=== PATIENT | female | born 1990 | race Hispanic/Latino ===

== ENCOUNTER → 2016-05-24 | Outpatient (CLI) | payer OTHER ==
--- NOTE | 2016-05-24 13:15 | Diagnostic Imaging Report ---
OB ultrasound. INDICATION: Uncertain dates. FINDINGS: There are no prior studies available for comparison. There is a single live fetus in variable presentation. heart motion is noted and a rate of 158 bpm is recorded. The growth parameters suggest the estimated gestational age as 16 weeks 4 days +/- 1 week. The growth parameters are as follows: BPD: 3.55, 17 weeks. Head circumference: 12.49, 16 weeks 3 days. Abdominal circumference: 10.71, 16 weeks 5 days. Femur length: 2.05, 16 weeks 1 day. There are no obvious abnormalities identified; however, a short-term (4-6 weeks) follow-up exam will be recommended for more sensitive evaluation of the anatomy. The amniotic fluid volume is within normal limits. The placenta is anterior and there is no previa. The cervix is identified and measures 5.1 cm in length (normal 3 cm or greater). IMPRESSION: 1. There is single live intrauterine of approximately 16 weeks 4 days gestation +/- 1 week. The EDC is November 04, 2016. 2. There are no obvious abnormalities identified. Recommendations as above. 3. The growth parameters are fairly uniform. Dictated by: Dictated on workstation # [id number]
== END ==
LOC: RAD 11:21
PROVIDERS: ATTEND Family Medicine
DX: Z34.82 Encounter for supervision of other normal pregnancy, second trimester (principal)
CPT/HCPCS: 76805

== ENCOUNTER → 2016-06-14 | Outpatient (CLI) | payer OTHER ==
--- NOTE | 2016-06-14 16:34 | Diagnostic Imaging Report ---
OB ultrasound. INDICATION: survey. FINDINGS: The heart rate is 153 beats per minute. The placenta is anterior. There is no placenta previa. The cervix is long and closed. The posterior fossa, the lateral ventricles, the stomach, bladder and the cord insertion appear unremarkable. The spine, four-chamber view and three-vessel cord are not well seen due to position. The growth parameters are all around 19 weeks and 4 days, normal interval growth from the prior exam. IMPRESSION: Appropriate interval growth. Short-term followup within two weeks is recommended to reevaluate the four-chamber view, the spine and three-vessel cord. Dictated by: Dictated on workstation # [id number]
== END ==
LOC: RAD 13:26
PROVIDERS: ATTEND Family Medicine
DX: Z34.82 Encounter for supervision of other normal pregnancy, second trimester (principal)
CPT/HCPCS: 76805

== ENCOUNTER → 2016-07-25 | Outpatient (CLI) | payer OTHER ==
--- NOTE | 2016-07-25 19:18 | Diagnostic Imaging Report ---
OB ultrasound. INDICATION: Four-chamber view, spine and three-vessel cord. COMPARISON: 06/14/2016. FINDINGS: heart rate is 149 beats per minute. The four-chamber view appears unremarkable. Three-vessel cord is demonstrated. The cord insertion appears normal. The upper aspect of the spine is seen without significant abnormality. The mid and lower spine is not well seen. IMPRESSION: The mid and lower spine segments are still not well seen. Short-term followup is recommended. Dictated by: Dictated on workstation # [id number]
== END ==
LOC: RAD 11:30
PROVIDERS: ATTEND Family Medicine
DX: Z34.82 Encounter for supervision of other normal pregnancy, second trimester (principal)
CPT/HCPCS: 76816

== ENCOUNTER 2016-10-05 16:10 | Inpatient (IN) | payer OTHER ==
[~2016-10-05] VITALS: Ht 170.2 cm; Wt 93.4 kg
[2016-10-05] VITALS (25 sets, daily range): BP systolic 112–132; BP diastolic 58–84
[2016-10-05] MEDS ORDERED: MINERAL OIL CONCENTRATE 99.9% 15 ML UDC TOP PRN (16:45)
[2016-10-05] MEDS ORDERED: AMPICILLIN INJECTION 2,000 MG in NS (IVPB) 50 ML IV ONE (16:45)
[2016-10-05] MEDS ORDERED: NS (IVPB) 50 ML ONE (16:48)
[2016-10-05] MEDS ORDERED: AMPICILLIN 2000 MG INJECTION (IM/IV) ONE (16:48)
[2016-10-05] MEDS: D5 LR IV SOLUTION 1,000 ML IV SCH (17:00)
[2016-10-05 17:24] LABS: BASOPHILS % (AUTO) 0 % (0-10); EOSINOPHILS % (AUTO) 1 % (0-10); LYMPHOCYTES # (AUTO) 1.1 X 10^3 (1.0-4.0); LYMPHOCYTES % (AUTO) 18 % (12-44); MEAN CORPUSCULAR HEMOGLOBIN 33 PG (25-34); MEAN CORPUSCULAR HGB CONC 34 G/DL (32-36); MEAN CORPUSCULAR VOLUME 97 FL (80-99); MEAN PLATELET VOLUME 12.5 FL (7.4-10.4); MONOCYTES # (AUTO) 0.7 X 10^3 (0.0-1.0); MONOCYTES % (AUTO) 12 % (0-12); NEUTROPHILS # (AUTO) 4.5 X 10^3 (1.8-7.8); NEUTROPHILS % (AUTO) 70 % (42-75); PLATELET COUNT 169 10^3/uL (130-400); RED BLOOD COUNT 3.64 10^6/uL (4.35-5.85); WHITE BLOOD COUNT 6.3 10^3/uL (4.3-11.0)
[2016-10-05 17:48] LABS: BILIRUBIN,URINE NEGATIVE (NEGATIVE); KETONES,URINE NEGATIVE (NEGATIVE); LEUKOCYTE ESTERASE ,URINE 1+ (NEGATIVE); NITRITE,URINE NEGATIVE (NEGATIVE); PH,URINE 7 (5-9); PROTEIN,URINE 2+ (NEGATIVE); UROBILINOGEN,URINE NORMAL (NORMAL)
[2016-10-05 17:56] LABS: WBC,URINE 0-2 /HPF
[2016-10-05] MEDS: AMPICILLIN INJECTION 1,000 MG in NS (IVPB) 50 ML IV SCH (20:49)
[2016-10-05] MEDS ORDERED: OXYTOCIN/NORMAL SALINE 500 ML IV ONE (21:18)
[2016-10-05] MEDS ORDERED: OXYTOCIN/NORMAL SALINE 500 ML IV SCH (21:36)
[2016-10-05] MEDS ORDERED: CATHETER FLUSH 10 ML SYR IV SCH (22:00)
[2016-10-06] VITALS (23 sets, daily range): BP systolic 107–138; BP diastolic 62–98
[2016-10-06] MEDS: AMPICILLIN INJECTION 1,000 MG in NS (IVPB) 50 ML IV SCH (00:58)
[2016-10-06] MEDS ORDERED: BUTORPHANOL INJ 2 MG/ML (STADOL) VIAL IV ONE (01:15)
--- NOTE | 2016-10-06 01:59 | History & Physical-OB ---
OB - Chief Complaint & HPI Date/Time Date of Admission: Date of Admission: Oct 05, 2016 at 16:11 Time Seen by Provider: 01:54 Chief Complaint/History OB-Reason for Admission/Chief: Rupture of Membranes ( Premature) Hx : 3 Hx Para: 2 Expected Date of Delivery: Nov 04, 2016 Gestational Age in Weeks: 35 Gestational Age in Days: 6 Other reason for admission: PPROM @ 1130 at home, presented to OB floor at 1615. Having contractions but not really feeling them Allergies and Home Medications Allergies Coded Allergies: No Known Drug Allergies (Verified Allergy, Unknown, 05/09/07) OB - History Hx of Present Care: Yes (Established with Dr Ayala at 16 wga) Ultrasounds: Normal mid trimester US Obstetrical Complications: None Medical Complications: None Information Induced Hypertension: No Maternal Gestational Diabetes: No Hemorrhage: No Obstetrical History Hx : 3 Hx Para: 2 Hx # Term Pregnancies: 2 Hx # Pregnancies: 0 Patient Past Medical History None Social History/Family History HIV/AIDS: No Recent Infectious Disease Expo: No Alcohol Use: Denies Use Recreational Drug Use: No Immunizations Hepatitis A: No Hepatitis B: No Tetanus Booster (TDap): Less than 5yrs Rubella: immune RPR/VDRL: Negative GBS Status: Unknown HBsAG: Negative OB - Admission Exam Physical Exam Time Seen by Provider: 02:02 Vitals: Vital Signs 10/06/16 01:00 Temp 98.5 Pulse 80 Resp 18 B/P (MAP) 132/80 HEENT: NCAT Heart: Rhythm Normal Lungs: Clear Abdomen: Soft Extremities: Normal Reflexes: Normal Cervical Dilatation: 6cm Amniotic Fluid: Clear Labs Laboratory Tests Test 10/05/16 17:00 Range/Units White Blood Count 6.3 4.3-11.0 10^3/uL Red Blood Count 3.64 L 4.35-5.85 10^6/uL Hemoglobin 12.1 11.5-16.0 G/DL Hematocrit 35 35-52 % Mean Corpuscular Volume 97 80-99 FL Mean Corpuscular Hemoglobin 33 25-34 PG Mean Corpuscular Hemoglobin Concent 34 32-36 G/DL Red Cell Distribution Width 13.0 10.0-14.5 % Platelet Count 169 130-400 10^3/uL Mean Platelet Volume 12.5 H 7.4-10.4 FL Neutrophils (%) (Auto) 70 42-75 % Lymphocytes (%) (Auto) 18 12-44 % Monocytes (%) (Auto) 12 0-12 % Eosinophils (%) (Auto) 1 0-10 % Basophils (%) (Auto) 0 0-10 % Neutrophils # (Auto) 4.5 1.8-7.8 X 10^3 Lymphocytes # (Auto) 1.1 1.0-4.0 X 10^3 Monocytes # (Auto) 0.7 0.0-1.0 X 10^3 Eosinophils # (Auto) 0.0 0.0-0.3 10^3/uL Basophils # (Auto) 0.0 0.0-0.1 10^3/uL Urine Color YELLOW Urine Clarity CLEAR Urine pH 7 5-9 Urine Specific [place] 1.015 L 1.016-1.022 Urine Protein 2+ H NEGATIVE Urine Glucose (UA) NEGATIVE NEGATIVE Urine Ketones NEGATIVE NEGATIVE Urine Nitrite NEGATIVE NEGATIVE Urine Bilirubin NEGATIVE NEGATIVE Urine Urobilinogen NORMAL NORMAL MG/DL Urine Leukocyte Esterase 1+ H NEGATIVE Urine RBC (Auto) 1+ H NEGATIVE Urine RBC 0-2 /HPF Urine WBC 0-2 /HPF Urine Squamous Epithelial Cells 5-10 /HPF Urine Crystals NONE /LPF Urine Bacteria TRACE /HPF Urine Casts NONE /LPF Urine Mucus SMALL H /LPF Urine Culture Indicated NO OB - Assessment/Plan/Diagnosis Assessment Assessment: rupture of membranes Plan Plan: Expectant Management (with pitocin augmentation) Copy Copies To 1: VESNA AYALA MD, HOLLY R MD Oct 06, 2016 01:59
[2016-10-06] MEDS: D5 LR IV SOLUTION 1,000 ML IV SCH (02:26)
--- NOTE | 2016-10-06 02:52 | OB Labor & Delivery Record ---
L&D History Date of Service Date of Service: Oct 06, 2016 History Expected Date of Delivery: Nov 04, 2016 Gestational Age in Weeks: 35 Hx : 3 Hx Para: 2 Complications Events: Prematre Rupture Membrane, Routine care Operative Indications (Cesarea: N/A-Vaginal Delivery Intrapartal Events: None L&D Stage1 Stage One Onset of Labor - Date: Oct 05, 2016 Onset of Labor - Time: 11:30 Monitors and Tracing Monitor Mode: Internal Heart Rate: 145 Station: -2 Vital Signs VS - Last 72 Hours, by Label 10/05/16 10/05/16 10/05/16 10/05/16 16:25 17:00 17:30 18:00 Temp 98.6 98.3 Pulse 96 83 Resp 18 18 B/P (MAP) 130/83 112/69 122/67 10/05/16 10/05/16 10/05/16 10/05/16 18:30 18:40 18:52 19:07 Temp 98.1 Pulse 86 80 83 83 Resp 18 18 18 18 B/P (MAP) 113/58 120/69 130/74 121/76 10/05/16 10/05/16 10/05/16 10/05/16 19:24 19:34 19:39 19:52 Temp 98.1 Pulse 76 74 82 Resp 18 18 18 B/P (MAP) 124/73 119/76 123/83 10/05/16 10/05/16 10/05/16 10/05/16 20:07 20:21 20:38 20:52 Temp 98.4 Pulse 87 88 83 77 Resp 18 18 18 18 B/P (MAP) 119/76 121/77 129/78 132/69 10/05/16 10/05/16 10/05/16 10/05/16 21:07 21:23 21:39 21:45 Temp 98.1 Pulse 82 78 83 Resp 18 18 18 B/P (MAP) 129/68 123/73 122/71 10/05/16 10/05/16 10/05/16 10/05/16 21:52 22:15 22:30 22:45 Pulse 88 90 82 81 Resp 18 18 18 18 B/P (MAP) 125/72 132/76 124/80 124/77 6/810/05/16 10/05/16 10/05/16 23:00 23:15 23:30 23:45 Temp 97.9 Pulse 77 81 78 78 Resp 18 18 18 18 B/P (MAP) 126/84 129/74 124/73 128/74 10/06/16 10/06/16 10/06/16 10/06/16 00:00 00:15 00:30 00:45 Temp 98.6 Pulse 85 78 77 78 Resp 18 18 18 18 B/P (MAP) 132/81 132/78 135/98 128/81 10/06/16 10/06/16 01:00 01:15 Temp 98.5 Pulse 80 81 Resp 18 18 B/P (MAP) 132/80 130/77 Rupture of Membranes Spontaneous Ruture of Membrane: Yes Amniotic Membrane Rupture Time: 1130 Amniotic Fluid Membrane Tests: Nitrazine Positive L&D Stage2 Stage Two Stage II Date: Oct 06, 2016 Monitors and Tracing Monitor Mode: Internal Heart Rate: 145 Position: Left Occiput Anterior Presentation: Vertex Signs of Distress by FHT Signs of Distress Early and Variable Decelerations Cord Descript/Complications Cord Vessel Description: 3 Vessels Delivery Type Infant Delivery Method: Spontaneous Vaginal Anterior Shoulder: Right Episiotomy/Perineal Laceration Episiotomy Description: Periurethral Extnsion/lac (No repair needed) Condition of Delivery Delivery Date & Time: 10/06/2016 0230 1 minute Comment: 8 5 minute Comment: 8 Notes 10 min: 9 Condition of Condition of Infant: Living Dr Castro Attended Delivery for care Resuscitation Resuscitation: Oxygen [place] (30%) L&D Stage3 Stage Three Stage III Date: Oct 06, 2016 Stage III Time: 02:33 Pictocin Pitocin Administration mu/min: 8 Pitocin ml/hr: 8 Pitocin Administration Comment: [id number] PITOCIN INCREASED. Placenta Delivery Placenta Delivery: Spontaneous Delivery Summary Summary Vaginal blood loss >500ml: No 125 Attending at delivery: Dr Curry Rag Boiler Donna Waddell, 3rd Year Medical student Condition of Delivery Examined: Cervix Examined Post Hemorrhage: No Condition of Mother Stable in delivery room Condition of (s) Stable in Delivery room with mother MAME CURRY MD Oct 06, 2016 02:52
[2016-10-06] MEDS ORDERED: OXYTOCIN/NORMAL SALINE 500 ML IV SCH (02:54)
[2016-10-06] MEDS ORDERED: BENZOCAINE/MENTHOL (DERMOPLAST) 56 ML CAN TP PRN (03:00)
[2016-10-06] MEDS ORDERED: WITCH HAZEL(TUCKS) 40 EA JAR TOP PRN (03:00)
[2016-10-06] MEDS: IBUPROFEN 600 MG (MOTRIN) TAB PO SCH ×4 (04:26→22:06)
[2016-10-06] MEDS ORDERED: CATHETER FLUSH 10 ML SYR IV SCH (06:00)
[2016-10-06] MEDS: PRENATAL VITAMIN 1 EA TAB PO SCH (09:41)
[2016-10-07] VITALS: BP 118/64
[2016-10-07 02:15] VITALS: BP 118/64
[2016-10-07] MEDS: IBUPROFEN 600 MG (MOTRIN) TAB PO SCH ×3 (03:59→16:24)
[2016-10-07 04:00] VITALS: BP 106/69
[2016-10-07 07:03] LABS: BASOPHILS % (AUTO) 0 % (0-10); EOSINOPHILS # (AUTO) 0.1 10^3/uL (0.0-0.3); EOSINOPHILS % (AUTO) 1 % (0-10); LYMPHOCYTES # (AUTO) 2.1 X 10^3 (1.0-4.0); LYMPHOCYTES % (AUTO) 33 % (12-44); MEAN CORPUSCULAR HEMOGLOBIN 33 PG (25-34); MEAN CORPUSCULAR HGB CONC 33 G/DL (32-36); MEAN CORPUSCULAR VOLUME 99 FL (80-99); MEAN PLATELET VOLUME 12.3 FL (7.4-10.4); MONOCYTES # (AUTO) 0.6 X 10^3 (0.0-1.0); MONOCYTES % (AUTO) 10 % (0-12); NEUTROPHILS # (AUTO) 3.5 X 10^3 (1.8-7.8); NEUTROPHILS % (AUTO) 56 % (42-75); PLATELET COUNT 137 10^3/uL (130-400); RED BLOOD COUNT 3.35 10^6/uL (4.35-5.85); RED CELL DISTRIBUTION WIDTH 13.3 % (10.0-14.5); WHITE BLOOD COUNT 6.3 10^3/uL (4.3-11.0)
[2016-10-07 07:45] VITALS: BP 119/78
[2016-10-07] MEDS: PRENATAL VITAMIN 1 EA TAB PO SCH (08:35)
--- NOTE | 2016-10-07 11:29 | Progress Note (SOAP) ---
Subjective Subjective/Events-last exam No concerns today. Bleeding less then period. Pain well controlled on PO meds. Tolerating ambulation and PO diet Review of Systems Time Seen by Provider: 10:20 Objective Exam Last Set of Vital Signs Vital Signs Date Time Temp Pulse Resp B/P (MAP) Pulse Ox O2 Delivery O2 Flow Rate FiO2 10/07/16 07:45 97.4 73 16 119/78 98 Room Air Capillary Refill : I&O Intake and Output 10/07/16 00:00 Intake Total 1700 ml Output Total 950 ml Balance 750 ml Intake Oral 650 ml IV Total 1050 ml Output Urine Total 950 ml General: Alert, Oriented X3, No Acute Distress Lungs: Clear to Auscultation, Normal Air Movement Heart: Regular Rate, No Murmurs Abdomen: Soft, No Tenderness, Other Extremities: No Edema, No Tenderness/Swelling Results/Procedures Lab Laboratory Tests 10/07/16 06:38: White Blood Count 6.3, Red Blood Count 3.35L, Hemoglobin 11.1L, Hematocrit 33L, Mean Corpuscular Volume 99, Mean Corpuscular Hemoglobin 33, Mean Corpuscular Hemoglobin Concent 33, Red Cell Distribution Width 13.3, Platelet Count 137, Mean Platelet Volume 12.3H, Neutrophils (%) (Auto) 56, Lymphocytes (%) (Auto) 33 , Monocytes (%) (Auto) 10, Eosinophils (%) (Auto) 1, Basophils (%) (Auto) 0, Neutrophils # (Auto) 3.5, Lymphocytes # (Auto) 2.1, Monocytes # (Auto) 0.6, Eosinophils # (Auto) 0.1, Basophils # (Auto) 0.0 Assessment/Plan Assessment/Plan Plan 26 yo G3 now P3 del female infant @ 35.6 wga via , PPD #1 Plan - Hgb stable, 12.1->11.1, continue PNV - Pain well controlled on PO medication - Encourage ambulation - Plan to d/c home with infant tomorrow with 6 week f/u Dr Ayala Diagnosis/Problems: Clinical Quality Measures DVT/VTE Risk/Contraindication: Risk Factor Score Per Nursin RFS Level Per Nursing on Admit: 1=Low/No VTE PPX MAME MONTANEZ MD Oct 07, 2016 11:29
[2016-10-07 13:14] VITALS: BP 105/63
[2016-10-07 20:00] VITALS: BP 118/77
[2016-10-08 02:00] VITALS: BP 122/82
[2016-10-08] MEDS: IBUPROFEN 600 MG (MOTRIN) TAB PO SCH ×2 (02:51→08:35)
[2016-10-08 08:00] VITALS: BP 118/63
[2016-10-08] MEDS: PRENATAL VITAMIN 1 EA TAB PO SCH (08:35)
[2016-10-08] MEDS ORDERED: IBUP-1773 PO (12:21)
--- NOTE | 2016-10-08 12:24 | Discharge Instructions ---
Discharge Inst-Women[facility] Serv Depart Medications New, Converted or Re-Newed RX: RX on Chart Final Diagnosis PPROM 35 week gestation New Medications: Ibuprofen (Ibuprofen) 600 Mg Tablet 600 MG PO Q6H for 30 Days, TAB Follow Up/Instructions Goal/Follow Up: You need to follow up with Dr Ayala in 6 weeks Patient Instructions: Breast feeding every 2 hrs Ibruprofen for pain Activity Activity: Activity as Tolerated Driving Instructions: You May Drive NO SMOKING: NO SMOKING Nothing Inside Vagina: No Douching, No [place] (Until 6 week follow), No Tampons Diet Discharge Diet: No Restrictions Symptoms to Report to : Swelling Increased, Bleeding Excessive, Fever Over 101 Degrees F, Urination Difficulty, Vaginal Bleeding Increase, Shortness of Breath For Any Problems or Questions: Contact Your Physician Copies To 1: VESNA AYALA MD, HOLLY R MD Oct 08, 2016 12:24
--- NOTE | 2016-10-08 12:25 | Discharge Summary ---
Diagnosis/Chief Complaint Date of Admission Oct 05, 2016 at 16:11 Date of Discharge October 08, 2016 Admission Diagnosis Admission Diagnosis PPROM 35 week gestation Unknown GBS Discharge Diagnosis See Above Chief Complaint/HPI Chief Complaint/HPI Presented to OB triage with gross ROM w/o adequate contractions. Discharge Summary-Simple/Stand Procedures of female Discharge Physical Examination Allergies: Coded Allergies: No Known Drug Allergies (Verified Allergy, Unknown, 05/09/07) Vitals & I&Os Vital Sign - Last 12Hours Date Time Temp Pulse Resp B/P (MAP) Pulse Ox O2 Delivery O2 Flow Rate FiO2 10/08/16 08:00 98.2 73 18 118/63 96 Room Air General Appearance: Alert, Oriented X3, Cooperative, No Acute Distress Respiratory: Clear to Auscultation, Normal Air Movement Cardiovascular: Regular Rate, No Murmurs Abdominal: Normal Bowel Sounds, Soft Extremities: No Edema, No Tenderness/Swelling Psych/Mental Status: Mental Status NL, Mood NL Hospital Course See final discharge diagnosis. Discussion & Recommendations G3 now P3 mother s/p of female after PPROM Discharge Condition at discharge Stable Instructions to patient/family Please see electonic discharge instructions given to patient. Discharge Medications Reviewed and agree with Discharge Medication list on patient's Discharge Instruction sheet Clinical Quality Measures DVT/VTE Risk/Contraindication: Risk Factor Score Per Nursin RFS Level Per Nursing on Admit: 1=Low/No VTE PPX Copy Copies To 1: VESNA HARVEY MD, HOLLY R MD Oct 08, 2016 12:25
== END 2016-10-08 13:25 | disposition home or self-care (01) | DRG 775 ==
LOC: WSo 16:10 → LDRP 16:10 → WSo 16:11 → LDRP 10-06 04:30
PROVIDERS: ADMIT Family Medicine; ATTEND Family Medicine
PROC: 10E0XZZ Delivery of Products of Conception, External Approach (ICD-10-PCS; principal; 2016-10-06)
DX: O42.013 Preterm premature rupture of membranes, onset of labor within 24 hours of rupture, third trimester (principal); O76 Abnormality in fetal heart rate and rhythm complicating labor and delivery; Z3A.35 35 weeks gestation of pregnancy; Z37.0 Single live birth
CPT/HCPCS: 36415; 81000; 85025; 86850; 86900; 86901; 99212